=== PATIENT | female | born 1975 | race Caucasian/White ===

== ENCOUNTER 2019-03-26 07:51 | Emergency (ER) | payer SELFPAY ==
[~2019-03-26] VITALS: Ht 175.3 cm; Wt 70.3 kg
--- OUTSIDE RECORDS SUMMARY | 2019-03-26 07:58 | XMS REPORT ---
Author Author LUIS ALBERTO MORALES Organization [facility] Address [address] [place] [address] Care Team Providers Care Actimize Architect Name Role Phone LUIS ALBERTO MORALES Unavailable PROBLEMS Type Condition ICD9-CM Code ZRI15-IF Code Onset Dates Condition Status SNOMED Code Problem Constipation, unspecified constipation type K59.00 Active [id number] ALLERGIES No Known Allergies ENCOUNTERS Encounter Location Date Diagnosis [facility] [address] [facility] [id number] [address] Jan, Constipation, unspecified constipation type K59.00 IMMUNIZATIONS No Known Immunizations SOCIAL HISTORY Never Assessed REASON FOR VISIT snf rx PLAN OF CARE VITAL SIGNS MEDICATIONS Medication Instructions Dosage Frequency Start Date End Date Duration Status Colace 100 MG Orally Once a day 1 capsule as needed 24h Jan, 30 day(s) Active RESULTS No Results PROCEDURES No Known procedures INSTRUCTIONS MEDICATIONS ADMINISTERED No Known Medications
--- NOTE | 2019-03-26 08:48 | ED Cough/URI ---
General Chief Complaint: Cough/Cold/Flu Symptoms Stated Complaint: COUGH / SOA / DIZZY Nursing Triage Note: AMB TO ROOM C/O COUGH CONGESTION FOR 2 WEEKS WOKE UP THIS AM FEELING MORE CONGESTED. CON'T TO SMOKE BUT NOT MUCH. Sepsis Screen: No Definite Risk Source: patient Exam Limitations: no limitations History of Present Illness Date Seen by Provider: Mar 26, 2019 Time Seen by Provider: 08:35 Initial Comments Here with one to 2 weeks of cough and congestion. Feels like she is getting more congested. Denies fever or chills. Does smoke cigarettes. States she does not usually get sick. Recently moved back to the areas of does not have a doctor here. She is concerned because of the persistent cough and congestion and wondered evaluation. Timing/Duration: constant, week Severity/Quality: moderate, dry cough Prior Episodes/Possible Cause: occasional episodes Modifying Factors: Worse With Activity Associated Symptoms: cough, fever/chills, nasal congestion, shortness of breath, wheezing Allergies and Home Medications Allergies Coded Allergies: Penicillins (Verified Allergy, Unknown, 06/14/07) Patient Home Medication List Home Medication List Reviewed: Yes Review of Systems Review of Systems Constitutional: see HPI; No chills, No fever EENTM: nose congestion; No throat pain Respiratory: short of breath; No wheezing Cardiovascular: no symptoms reported Gastrointestinal: No abdominal pain, No nausea, No vomiting Past [id number]-[id number] Hx Past Med/Social Hx: Reviewed Nursing Past Med/Soc Hx Patient Social History Alcohol Use: Occasionally Uses Recreational Drug Use: No Smoking Status: Current Someday Smoker Type Used: Cigarettes Recent Foreign Travel: No Contact w/Someone Who Travel: No Recent Infectious Disease Expo: No Past Medical History Surgeries: Yes (TUBAL PREG ) Gallbladder Respiratory: No Cardiac: No Neurological: No Genitourinary: No Gastrointestinal: No Musculoskeletal: No Endocrine: No HEENT: No Cancer: No Psychosocial: No Integumentary: No Family Medical History Reviewed Nursing Family Hx Physical Exam Vital Signs - First Documented 03/26/19 08:00 Temp 97.8 Pulse 74 Resp 18 B/P (MAP) 107/74 (85) Pulse Ox 96 O2 Delivery Room Air Capillary Refill : Less Than 3 Seconds Height: 5'9.00" Weight: 155lbs. oz. 70.112049it; BMI Method:Stated General Appearance: WD/WN, no apparent distress HEENT: PERRL/EOMI, pharyngeal erythema (mild), other (mild bilateral nasal congestion with clear rhinorrhea and moderate erythema) Neck: full range of motion, supple Respiratory: lungs clear, normal breath sounds, no accessory muscle use Cardiovascular: regular rate, rhythm, no murmur Gastrointestinal: non tender, soft Neurologic/Psychiatric: alert, oriented x 3 Skin: normal color, warm/dry Progress/Results/Core Measures Suspected Sepsis Recent Fever Within 48 Hours: No Infection Criteria Present: None New/Unexplained Altered Menta: No Sepsis Screen: No Definite Risk SIRS Temperature:97.8 Pulse: 74 Respiratory Rate: 18 Blood Pressure 107 /74 Mean: 85 Results/Orders Vital Signs/I&O 03/26/19 08:00 Temp 97.8 Pulse 74 Resp 18 B/P (MAP) 107/74 (85) Pulse Ox 96 O2 Delivery Room Air Capillary Refill : Less Than 3 Seconds Blood Pressure Mean: 85 Progress Note : Progress Note Seen and evaluated. Patient afebrile with normal vital signs and no respiratory distress. We will hold on x-ray at this point. We will initiate outpatient therapy with prednisone and then if not improved azithromycin. Patient will fo llow-up as indicated. Discharged home with return precautions. Patient verbalize understanding instructions and agreement with plan. Departure Impression Primary Impression: Bronchitis Disposition: 01 HOME, SELF-CARE Condition: Stable Departure-Patient Inst. Decision time for Depature: 08:49 Referrals: NO,LOCAL PHYSICIAN (PCP/Family) Primary Care Physician Patient Instructions: Acute Bronchitis, Adult (DC) Add. Discharge Instructions: All discharge instructions reviewed with patient and/or family. Voiced understanding. Take medications as directed. You should fill the prednisone prescription and initiate that. If you are improved then you do not need to fill the antibiotic prescription. If you're not improved in 2 days then start the antibiotics. Return for fever, chills, vomiting, weakness, breathing problems or other concerns as needed. You should follow-up with your doctor or local doctor within a few days for recheck and further evaluation as needed. Scripts Azithromycin (Azithromycin) 250 Mg Tablet 250 MG PO UD, #6 TAB TAKE 2 TABLETS ON DAY ONE THEN TAKE 1 TABLET DAILY FOR FOUR MORE DAYS Prov: MARGO ÁLVAREZ MD 03/26/19 Prednisone (Prednisone) 20 Mg Tab 40 MG PO DAILY, #12 TAB 0 Refills Prov: MARGO ÁLVAREZ MD 03/26/19 MARGO ÁLVAREZ MD Mar 26, 2019 08:48
[2019-03-26] MEDS ORDERED: AZIT250T12 PO (08:51)
[2019-03-26] MEDS ORDERED: PRD20T PO (08:51)
[2019-03-26 09:00] VITALS: BP 109/75
== END 2019-03-26 09:00 | disposition home or self-care (01) ==
LOC: EDUNIT# 07:51 → ER 07:54
DX: J40 Bronchitis, not specified as acute or chronic (principal); F17.210 Nicotine dependence, cigarettes, uncomplicated; Z88.0 Allergy status to penicillin; Z98.890 Other specified postprocedural states
CPT/HCPCS: 99282